=== PATIENT | female | born 1970 | race Caucasian/White ===

== ENCOUNTER 2018-04-26 11:44 | Inpatient (IN) | payer BC, OTHER ==
[2018-04-26] MEDS ORDERED: NS 0.9% 1000 ML** 1,000 ML IV ONE ×3 (12:04→12:07)
[2018-04-26] MEDS ORDERED: Metoclopramide IV* 5 MG/ML 2 ML VIAL IV ONE (12:04)
--- NOTE | 2018-04-26 12:04 | ED ---
GI/ HPI - HPI Summary HPI Summary: Patient is a 47 y/o F presenting to ED via EMS with complaints of LLQ abdominal pain, N/V, chronic chest pain, weight loss. She states that last night, she had a few beers and dinner, afterwards patient began to experience N/V and abdominal pain. Sx progressively worsened. She notes that she has had Hx of abdominal pain and N/V almost daily for the past year, states that she has been to see multiple doctors but etiology of Sx is unknown. PMHx of Crohn's, ulcerative colitis, diverticulitis, CHF is denied. Hx htn, depression, ETOH, chronic abd. pain with vomiting. EMS reports that patient was picked up at a hotel, gross amount of empty beer cans on floor and table noted. Patient states that present abdominal pain is sharper than her typical abdominal pain. Chest pain is also noted but the patient describes this as chronic and daily. She denies recreational drug usage. In room, pulse ranges from 47-55, EMS reported BP 80s over palp, o2 sat is 100 on RA. Patient also notes recent weight loss, she denies past issues with her potassium, states she feels dehydrated. She also notes feeling slightly light-headed and dizzy. Unsure of LNMP, patient is on control. In room, nurse reports manual BP of 80/48. Home medications and allergies are reviewed. - History of Current Complaint Stated Complaint: ABD PAIN Hx Obtained From: Patient, EMS Onset/Duration: Started Days Ago - last night, Still Present, Worse Since Timing: Constant, Lasting Days - last night Current Severity: Severe Location of Pain: LLQ Pain Characteristics: Sharp Associated Signs and Symptoms: Positive: Dizziness, Nausea, Vomiting, Lightheadedness, Abdominal Pain, Chest Pain - CHRONIC, Other: - recent weight loss, dehydration Aggravating Factor(s): Nothing Alleviating Factor(s): Nothing - Allergy/Home Medications Allergies/Adverse Reactions: Allergies Allergy/AdvReac Type Severity Reaction Status Date / Time No Known Allergies Allergy Verified 11/16/15 15:09 Home Medications: Home Medications Desogestrel-Ethinyl Estradiol [Enskyce 28 Tablet] 1 tab PO DAILY 04/26/18 [ History Confirmed 04/26/18] LORazepam TAB(*) [Ativan 1 MG TAB (*)] 2 mg PO DAILY PRN 04/26/18 [History Confirmed 04/26/18] Lisinopril TAB* [Prinivil TAB*] 10 mg PO DAILY 04/26/18 [History Confirmed 04/26] PMH/Surg Hx/FS Hx/Imm Hx Endocrine/Hematology History: Denies: Hx Diabetes Cardiovascular History: Reports: Hx Hypertension Denies: Hx Congestive Heart Failure, Hx Pacemaker/ICD GI History: Reports: Other GI Disorders - NO PMHx of ulcerative colitis Denies: Hx Crohn's Disease History: Denies: Hx Renal Disease Sensory History: Reports: Hx Contacts or Glasses Denies: Hx Hearing Aid Opthamlomology History: Reports: Hx Contacts or Glasses Psychiatric History: Denies: Hx Panic Disorder - Surgical History Surgery Procedure, Year, and Place: TUBAL LIGATION. DISCECTOMY L4-S1 ( W/ METAL CAGE)-[facility] - Family History Known Family History: Positive: Hypertension - Social History Alcohol Use: Rare Substance Use Type: Reports: None Smoking Status (MU): Never Smoked Tobacco Review of Systems Constitutional: Other - POSITIVE - RECENT WEIGHT LOSS, DEHYDRATION Positive: Chest Pain - CHRONIC Positive: Abdominal Pain, Vomiting, Nausea Neurological: Other - POSITIVE - DIZZINESS, LIGHT-HEADEDNESS All Other Systems Reviewed And Are Negative: Yes Physical Exam - Summary Physical Exam Summary: GENERAL: Patient is a well-developed and nourished female who is lying in the stretcher. Patient is not in any acute respiratory distress. She is somnolent but progressively perking up during evaluation. HEAD AND FACE: Normocephalic EYES: PERRLA, EOMI x 2. EARS: Hearing grossly intact. MOUTH: Oropharynx within normal limits. Dry and chapped oral mucosa. NECK: Supple, trachea is midline, no adenopathy, no JVD, no carotid bruit. CHEST: Symmetric, no tenderness at palpation LUNGS: Clear to auscultation bilaterally. No wheezing or crackles. CVS: Regular rate and rhythm, S1 and S2 present, no murmurs or gallops appreciated. ABDOMEN: Soft, diffuse tenderness, more so at LLQ. Bowel sounds are normal. No abdominal abnormal pulsations. EXTREMITIES: Full ROM in all major joints, no edema, no cyanosis or clubbing. NEURO: Alert and oriented x 3. No acute neurological deficits. Speech is normal and follows commands. Triage Information Reviewed: Yes Vital Signs On Initial Exam: Initial Vitals Resp 24 04/26/18 11:50 Vital Signs Reviewed: Yes Diagnostics - Laboratory Result Diagrams: 04/26/18 12:10 04/26/18 18:09 Lab Statement: Any lab studies that have been ordered have been reviewed, and results considered in the medical decision making process. - Radiology cxr Radiology Interpretation Completed By: Radiologist Summary of Radiographic Findings: CXR IMPRESSION: NO EVIDENCE FOR ACUTE DISEASE. THIS REPORT WAS REVIEWED BY ED PHYSICIAN. - CT ABD/PEL CT CT Interpretation Completed By: Radiologist Summary of CT Findings: CT ABD/PEL IMPRESSION: 1. THERE IS DIFFUSE PATTERN OF MUCOSAL THICKENING AND ENHANCEMENT OF THE SMALL BOWEL. THE. DIFFERENTIAL INCLUDES INFECTIOUS OR NONINFECTIOUS/INFLAMMATORY ENTERITIS, INCLUDING IN THE. SETTING OF INFLAMMATORY BOWEL DISEASE. THERE IS NO OBSTRUCTION. 2. THERE IS A SMALL AMOUNT OF PELVIC ASCITES. 3. FATTY INFILTRATION OF THE LIVER. THIS REPORT WAS REVIEWED BY ED PHYSICIAN. - EKG 1151 Cardiac Rate: Bradycardia - rate of 49 BPM EKG Rhythm: Sinus Bradycardia Summary of EKG Findings: EKG showed sinus bradycardia with rate of 49 BPM, prolonged QT. Re-Evaluation - Re-Evaluation First Eval Re-Evaluation Time: 14:10 Change: Improved Comment: Patient reports improvement in Sx, BP at 106/50. GIGU Course/Dx - Course Course Of Treatment: Patient is a 47 y/o F presenting to ED via EMS with complaints of abdominal pain, N/V, chronic chest pain, weight loss. She states that last night, she had a few beers and dinner, afterwards patient began to experience N/V and abdominal pain. Sx progressively worsened. She notes that she has had Hx of abdominal pain, N/V for the past year, states that she has been to see multiple doctors but cause of Sx is unknown. PMHx of Crohn's, ulcerative colitis is denied. Patient notes that present abdominal pain is sharper than her typical abdominal pain. Chest pain is also noted but the patient describes this as chronic. She denies recreational drug usage. In room, ranges from 47-55, EMS reported BP 80s over palp, o2 sat is 100 on RA. Patient also notes recent weight loss, she denies past issues with her potassium, states she feels dehydrated. She also notes feeling slightly light-headed and dizzy. Unsure of LNMP, patient is on control. In room, nurse reports manual BP of 80/48. On physical exam, patient is somnolent but progressively perking up, oral mucosa are dry and chapped, diffuse abdominal tenderness but more so at LLQ. EKG showed sinus bradycardia with rate of 49 BPM, prolonged QT. During ED course, patient received fluids, flagyl 500 mg in 100 mls @ 100 mls/hr IVPB ONCE, relgan 10 mg IV, Slow Mag Ec 64 mg PO ONCE, ceftriaxone sodium 1 gm in sodium chloride, 50 mls @ 100 mls/hr IVPB ED ONCE. Labs showed WBC 25.6, absolute neuts 23.1, absolute monos 1.1, APTT 22.2, carbon dioxide 16 , anion gap 12, creatinine 1.58, glucose 136, lactic acid 2.4, calcium 7.6, magnesium 1.5, trop 0, CRP 5.05, total protein 5.9, BNP 49, beta HCG < 0.6. Tox showed salicylates < 2.5, acetaminophen < 15, serum alcohol < 10. UA showed protein 1+, blood 1+, leukoycte esterase 3+, WBC 1+, RBC 1+, present squamous epith cells, present hyaline casts. Patient reports improvement in Sx, BP at 106/50. CT ABD/PEL IMPRESSION: 1. THERE IS DIFFUSE PATTERN OF MUCOSAL THICKENING AND ENHANCEMENT OF THE SMALL BOWEL. THE. DIFFERENTIAL INCLUDES INFECTIOUS OR NONINFECTIOUS/INFLAMMATORY ENTERITIS, INCLUDING IN THE. SETTING OF INFLAMMATORY BOWEL DISEASE. THERE IS NO OBSTRUCTION. 2. THERE IS A SMALL AMOUNT OF PELVIC ASCITES. 3. FATTY INFILTRATION OF THE LIVER. CXR IMPRESSION : NO EVIDENCE FOR ACUTE DISEASE. Patient reports improvement in Sx, BP at 106/ 50. Patient's case was discussed with Dr. Lara, Dr. Lara accepts the patient for admission. - Diagnoses Provider Diagnoses: Hypotension, Abdominal pain - Physician Notifications Discussed Care Of Patient With: Daisy Lara Time Discussed With Above Provider: 14:12 Instructed by Provider To: Other - Patient's case was discussed with Dr. Lara, Dr. Lara accepts the patient for admission. - Critical Care Time Critical Care Time: 30-74 min - 45 MINUTES OF CCT Discharge - Sign-Out/Discharge Documenting (check all that apply): Patient Departure - ADMIT - Discharge Plan Condition: Good Disposition: ADMITTED TO [facility] Referrals: Yamileth Cheng MD [Primary Care Provider] - - Billing Disposition and Condition Condition: GOOD Disposition: Admitted to [facility] - Attestation Statements Document Initiated by Louis: Yes Documenting Scribe: TRAVIS SYKES Provider For Whom Louis is Documenting (Include Credential): SARAH RAHMAN MD Scribe Attestation: ITRAVIS , scribed for SARAH RAHMAN MD on 04/26/18 at 2124. Scribe Documentation Reviewed: Yes Provider Attestation: The documentation as recorded by the TRAVIS allen accurately reflects the service I personally performed and the decisions made by me, SARAH RAHMAN MD Status of Scribe Document: Viewed
[2018-04-26 12:20] LABS: Hematocrit 45 % (35-47); Hemoglobin 14.5 g/dl (12.0-16.0); Mean Corpuscular HGB Conc 33 g/dl (31-36); Mean Corpuscular Hemoglobin 29 pg (27-31); Mean Corpuscular Volume 89 fL (80-97); Mean Platelet Volume 8.6 fL (7.4-10.4); Platelet Count 394 10^3/ul (150-450); Red Blood Count 4.98 10^6/ul (4.00-5.40); Red Cell Distribution Width 14 % (10.5-15); White Blood Count 25.6 10^3/ul (3.5-10.8)
[2018-04-26 12:30] LABS: Activated Partial Thrombo Time 22.2 seconds (26.0-36.3); INR 0.99 (0.77-1.02)
--- OUTSIDE RECORDS SUMMARY | 2018-04-26 12:38 | XMS REPORT | Continuity of Care Document ---
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 Screening Mammogram Malig Nikolai Other 787.02 Nausea Alone v25.49 Contraceptive Other Method Surveillance V25.9 Contraceptive Management Unspec Office Visit 03/29/2014 9:30a [facility] Oralia Ortiz, 488.82 Influenza Due To Afnp-C Identified Influenza A Virus Resp Manfestat 401.9 Hypertension Unspec Plan of Treatment 04/23/2018 - Sona Baker, NPN93.9 Abnormal uterine and vaginal bleeding, [id number] Essential (primary) hypertensionComments:The patient will continue to monitor blood pressure and let me know the blood pressure results if there are readings persistently above 140/80. Goal blood pressure is less than 140/80. Recommend low salt/cardiac diet and routine exercise.Z30.8 Encounter for other contraceptive [id number] NauseaComments:patient instructed to call back if condition fails to improve or worsens.R63.4 Abnormal weight lossComments:I'm concerned - will get to OBGYN, patient instructed to call back if condition fails to improve or worsens.AllComments:~B_~U_Medication Management~b_~u_ Patient Understands medications he 's taking? Yes No Are there Barriers to Adherence? Yes No Has the patient been asked about herbal supplements and therapies, and OTC meds? Yes No ~B_~U_Care Plan~b_~u_1. Patient has been queried about patient's goals/preferences and functional/lifestyle goals at relevant visits. If relevant, describe: na2. Treatment goals as explained to the patient: above3. Are there barriers to meeting treatment goals? Yes No If Yes, please describe:4. Self- Management goals as described to the patient:Yes NoAs always, we strongly encourage a healthy diet and making physical activity a part of your every day life. If you have questions about how or where to start, please contact the office.
[2018-04-26 12:49] LABS: ALT 16 U/L (7-52); AST 14 U/L (13-39); Albumin 3.3 g/dL (3.2-5.2); Albumin/Globulin Ratio 1.3 (1-3); Alkaline Phosphatase 54 U/L (34-104); Anion Gap 12 mmol/L (2-11); BUN/Creatinine Ratio 8.2 (8-20); Blood Urea Nitrogen 13 mg/dL (6-24); C Reactive Protein 5.05 mg/L (<8.01); CO2 Carbon Dioxide 16 mmol/L (22-32); Calcium 7.6 mg/dL (8.6-10.3); Chloride 110 mmol/L (101-111); Creatine Kinase 50 U/L (10-223); EGFR African American 42.8 (>60); EGFR Non-African American 35.4 (>60); Globulin 2.6 g/dL (2-4); Glucose 136 mg/dL (70-100); Magnesium 1.5 mg/dL (1.9-2.7); Potassium 3.9 mmol/L (3.5-5.0); Sodium 138 mmol/L (135-145); Total Protein 5.9 g/dL (6.4-8.9)
[2018-04-26 12:51] LABS: HCG Pregnancy < 0.60 mIU/mL
[2018-04-26 13:05] LABS: ABS Basophils 0.1 10^3/ul (0-0.2); ABS Eosinophils 0 10^3/ul (0-0.6); ABS Lymphocytes 1.4 10^3/ul (1.0-4.8); ABS Monocytes 1.1 10^3/ul (0-0.8); ABS Neutrophils 23.1 10^3/ul (1.5-7.7); ABS Nucleated RBC 0 10^3/ul; Eosinophil % 0 %; Lymphocyte % 5.4 %; Nucleated Red Blood Cells % 0.1
[2018-04-26] MEDS ORDERED: cefTRIAXone(*) 1 GM in NS 0.9% 50 ML* 50 ML IVPB ONE (13:13)
[2018-04-26] MEDS ORDERED: Magnesium Chloride EC TAB* 64 MG PO ONE (13:16)
[2018-04-26] MEDS ORDERED: metroNIDAZOLE IV 500 MG/100ML* 500 MG/100 ML BAG IVPB ONE (13:16)
[2018-04-26 13:32] LABS: Acetaminophen < 15 mcg/mL; Salicylate < 2.50 mg/dL (<30)
[2018-04-26] MEDS ORDERED: Iodixanol* (CONTRAST) 320 MG/ML 100 ML SDV IV ONE (13:38)
[2018-04-26 14:08] LABS: Urine Appearance Cloudy; Urine Bacteria Absent (Absent); Urine Bilirubin Negative (Negative); Urine Blood 1+ (Negative); Urine Color Yellow; Urine Glucose Negative (Negative); Urine Ketones Negative (Negative); Urine Nitrite Negative (Negative); Urine Protein 1+(30 mg/dL) (Negative); Urine Red Blood Cell 1+(3-5/hpf) (Absent); Urine Specific Gravity 1.013 (1.010-1.030); Urine Squamous Epithelial Cell Present (Absent); Urine Urobilinogen Negative (Negative); Urine White Blood Cell 1+(6-10/hpf) (Absent)
[2018-04-26 15:33] LABS: Influenza A Molecular NEGATIVE (Negative); Influenza B Molecular NEGATIVE (Negative)
[2018-04-26 15:45] LABS: Barbiturates Urine Screen None Detected (None Detect); Benzodiazepine Urine Screen None Detected (None Detect); Urine Cannabinoids Screen None Detected (None Detect)
[2018-04-26] MEDS ORDERED: NS 0.9% 1000 ML** 1,000 ML IV SCH (15:45)
[2018-04-26] MEDS ORDERED: Acetaminophen TAB* 325 MG PO PRN (15:59)
[2018-04-26] MEDS ORDERED: LORazepam TAB(*) 0.5 MG PO PRN (16:00)
[2018-04-26] MEDS ORDERED: Ondansetron INJ* 2 MG/ML VIAL IV PRN (16:00)
[2018-04-26 18:32] LABS: Albumin 3.4 g/dL (3.2-5.2); Albumin/Globulin Ratio 1.4 (1-3); BUN/Creatinine Ratio 12.9 (8-20); Calcium 8.2 mg/dL (8.6-10.3); EGFR African American 61.1 (>60); EGFR Non-African American 50.5 (>60); Globulin 2.4 g/dL (2-4); Potassium 4.2 mmol/L (3.5-5.0); Total Bilirubin 0.4 mg/dL (0.2-1.0); Total Protein 5.8 g/dL (6.4-8.9)
--- NOTE | 2018-04-26 18:48 | HP ---
HISTORY AND PHYSICAL DATE OF ADMISSION: 04/26/18 PRIMARY CARE PROVIDER: Dr. Yamileth Cheng. CHIEF COMPLAINT: Abdominal pain and dizziness. HISTORY OF PRESENT ILLNESS: This is a 47-year-old female with a past medical history of chronic abdominal pain with extensive workup done at [facility], gastroparesis, fibroids, HTN, anxiety and PTSD, who presents to the emergency room with 2 weeks of generally not feeling well, feeling week and having what she though was fibroid pain. She generally has this kind of pain with her fibroids and she had some breakthrough spotting and did not think much of it and continued to work as normal. About 1 week ago, she started to feel like she was coming down with maybe a virus and generally felt malaise, then took a few days off work and then one day prior to admission, she said she got very exhausted. She and her boyfriend were planning on going on a date and stayed at a hotel. They went out to dinner and had gyros and then she immediately had nausea and vomiting and diarrhea. She also said she drank about 2 beers at that time with dinner, but otherwise no other substance intake. She said her nausea, vomiting and diarrhea persisted overnight to the point where she became dizzy and was unable to stand, culminated with 1 episode of bloody emesis and bloody diarrhea, at this point requested her family to call ambulance. Of note, this patient says that she often has nausea, vomiting and diarrhea after she eats and as per past medical history she has had an extensive workup with numerous GI doctors and ultimately has been unrevealing. She does note an unintentional weight loss of 50 pounds since October and this has all been in the setting of her chronic abdominal pain and issues. Although she said that this most recent presentation is the most severe presentation of all of her history. The patient also notes that her stomach problems began about 10 years ago. EMERGENCY ROOM COURSE: In the emergency room, the patient presented hypotensive with blood pressure 78/54 and bradycardic, sinus rate of 52, was satting normally on room air and had a respiration rate of 13. She had labs that were notable for a white blood cell count of 25. She had a BMP that was notable for a sodium of 138, potassium of 3.9, a carbon dioxide of 16, and anion gap of 12, creatinine of 1.58. Lactic acid was drawn that was 2.4. Her calcium was slightly low at 7.6. She had unremarkable liver function testing and a negative test. She had a UA that was done that showed significant leuk esterase, squamous cells and white blood cells consistent with UTI. She had an influenza test done that was negative. She had a toxicology screen that was negative for all. Serum alcohol level was less than 10. She had imaging done in the emergency room that was a CT abdomen and pelvis that showed diffuse mucosal thickening of the small bowel consistent with enteritis and also some nonspecific pelvic ascites. She had a chest x-ray that showed no acute disease. She had an EKG that was done that showed sinus bradycardia with no evidence of ischemia with a QTc greater than 500. In the emergency room, she received 4 L of normal saline, metronidazole, and ceftriaxone. PAST MEDICAL HISTORY: 1. Chronic abdominal pain. 2. Anxiety. 3. PTSD. 4. Hypertension. 5. Fibroids. 6. Unintentional weight loss of 50 pounds since October 2017. FAMILY HISTORY: Noncontributory. SOCIAL HISTORY: She lives at home with 2 sons and an adult daughter who is currently at college. For her job, she is a traveling nurse. She is a social alcohol drinker and denies any history of abuse. She has no history of substance abuse and she is a lifetime nonsmoker. HOME MEDICATIONS: 1.Lisinopril 10 mg p.o. daily. ALLERGIES: She has no known drug allergies. REVIEW OF SYSTEMS: The patient denied headaches, vision changes, difficulty swallowing. Denies chest pain, shortness of breath, musculoskeletal pain, skin changes, mental status changes, neurological changes. Her review of systems is positive for nausea, vomiting, diarrhea, abdominal pain and on further questioning is positive for bloody vomiting and diarrhea, one episode during the night prior to admission. She noted that this was bright red blood streaking in her vomit and bright red blood per rectum streaking in her stool. PHYSICAL EXAMINATION GENERAL: She is alert, pleasant woman, in no acute distress, lying in bed. VITAL SIGNS: Blood pressure is 120/75, heart rate 51, respiration rate 13, satting 100% on room air. Her temperature is 97.4. HEENT: Eyes: Her conjunctivae are pink. Her pupils are equal and reactive. Her ENT exam, she has moist mucous membranes with good dentition. LYMPHATIC: She has no cervical or supraclavicular lymphadenopathy. RESPIRATORY: She is clear to auscultation bilaterally with no accessory muscles. CARDIAC: She has no murmurs, rubs, or gallops and S1, S2 with mildly bradycardic rhythm in the 50s. ABDOMEN: Her belly is soft, nondistended with bowel sounds in all 4 quadrants. She is tender to palpation in left lower quadrant. She has no evidence of hepatosplenomegaly and no stigmata of chronic liver disease. MUSCULOSKELETAL: She has full range of motion with no clubbing or cyanosis. NEURO: Her cranial nerves II through XII are intact. She has no focal deficits. PSYCH: She is oriented x3 with no evidence of anxiety or depression. SKIN: She has no rashes and no abnormalities. DIAGNOSTIC STUDIES/LAB DATA: Her BMP is as we discussed: Sodium 138, potassium 3.9, chloride 110, carbon dioxide 16, anion gap of 12, BUN 13, creatinine 1.58, glucose 136. Her calcium is 7.6. Her magnesium is 1.5. Her phosphorus was not drawn. Her liver values are as following: She has AST of 14 , ALT of 16, alk phos of 54, total bilirubin 0.4. EKG was notable for sinus bradycardia with a QTc prolongation of greater than 500. Chest x-ray was with no acute disease. CT abdomen and pelvis was done that showed diffuse mucosal thickening of the small bowel and scant pelvic ascites. EKGs and all films were reviewed personally. ASSESSMENT AND PLAN: This is a 47-year-old female with a past medical history of hypertension, chronic abdominal issues, anxiety, who presented with 2 weeks of subacute malaise and 1 day of nausea, vomiting and diarrhea with 1 episode of bloody emesis and diarrhea along with dizziness. She presented in the emergency room septic with evidence of urinary tract infection and small bowel enteritis. She also was found to have acute kidney injury and anion gap metabolic acidosis. 1. Sepsis: This is secondary to urinary tract infection and intraabdominal source. -We will continue normal saline at 125 cc per hour. -We will repeat the BMP and lactic acid. -Continue antibiotics, ceftriaxone and metronidazole. If declines, consider broadening to Zosyn. Follow up on panculture. 2. Urinary tract infection: Continue ceftriaxone and metronidazole. Await culture data. 3. Enteritis: She has diffuse mucosal thickening in her small bowel, unclear if this is infectious or a noninfectious cause of enteritis. -We will send stool for culture including Clostridium difficile. -I have also placed a consult to Dr. Erik Dupont for GI followup. She remains on a clear liquid diet. 4. Anion gap metabolic acidosis, most likely secondary to starvation ketosis: We will repeat her BMP after fluid resuscitation and adjust fluids accordingly. 5. Acute kidney injury: Her creatinine is elevated to 1.5 with a baseline that is usually normal, most likely secondary to prerenal and we will continue to follow after fluid resuscitation. 6. Unintentional weight loss: This is a subacute issue. She has lost 50 pounds unintentionally since October 2017, unclear if this is contributing to her current presentation. We will discuss with GI whether formal oncology workup is needed for cause of unintentional weight loss. 7. Anxiety: I will put her on 0.5 mg p.o. of Ativan for mild anxiety. 8. DVT prophylaxis: She is of moderate risk and she is on subcu heparin. 9. FEN: She remains on clear liquid diet with a GI consult pending and can advance as tolerated. 10. She is a full code status. 11. Her disposition currently is inpatient specialists. After this assessment and plan, specialists have been contacted include GI, consult was placed in the emergency room. They plan to see her on hospital day 2. PCP will be contacted during this hospitalization. Case was discussed with the patient and her family members. TIME SPENT: Sixty minutes was spent in the history and physical of this patient with over half of that spent at the bedside of the patient and residential counselor. [id number]/[facility] #: [id number] MAYE
[2018-04-26] MEDS ORDERED: Metoclopramide IV* 5 MG/ML 2 ML VIAL IV PRN (19:46)
[2018-04-26] MEDS: metroNIDAZOLE IV 500 MG/100ML* 500 MG/100 ML BAG IVPB SCH (22:24)
[2018-04-26] MEDS: Heparin VIAL(*) 5000 UNITS/ML VIAL (FIVE THOUSAND) SUBCUT SCH (22:27)
[2018-04-27 05:14] LABS: ABS Basophils 0.1 10^3/ul (0-0.2); ABS Eosinophils 0 10^3/ul (0-0.6); ABS Lymphocytes 2.3 10^3/ul (1.0-4.8); ABS Monocytes 1.1 10^3/ul (0-0.8); ABS Neutrophils 13.3 10^3/ul (1.5-7.7); ABS Nucleated RBC 0 10^3/ul; Eosinophil % 0.1 %; Hematocrit 38 % (35-47); Hemoglobin 12.6 g/dl (12.0-16.0); Lymphocyte % 13.8 %; Mean Corpuscular HGB Conc 33 g/dl (31-36); Mean Corpuscular Hemoglobin 29 pg (27-31); Mean Corpuscular Volume 87 fL (80-97); Mean Platelet Volume 8.8 fL (7.4-10.4); Nucleated Red Blood Cells % 0; Platelet Count 316 10^3/ul (150-450); Red Cell Distribution Width 14 % (10.5-15); White Blood Count 16.8 10^3/ul (3.5-10.8)
[2018-04-27] MEDS: Heparin VIAL(*) 5000 UNITS/ML VIAL (FIVE THOUSAND) SUBCUT SCH ×3 (05:29→21:43)
[2018-04-27 05:34] LABS: Calcium 8.4 mg/dL (8.6-10.3); EGFR African American 86.3 (>60); EGFR Non-African American 71.4 (>60); Potassium 3.8 mmol/L (3.5-5.0)
--- NOTE | 2018-04-27 09:22 | PN ---
Subjective Date of Service: 04/27/18 Interval History: HD#2 on 04/27/18 47 yo F admitted with sepsis likely from enteritis and possible UTI. Also with subacute chronic abdominal pain with 1 episode of blood N/V and subacute weight loss unintentional Overnight no acute events, BP low of 92/49, improved overnight, T Max 99.2. Labs markedly improved this morning. Voiding normally. Seen this morning no acute complaints, has not had diarrhea or any BM here. Is not tolerating much of a diet, but she says this is her normal, encourage for her to make a meaningful relationship with GI Objective Active Medications: Acetaminophen (Tylenol Tab*) 650 mg PO Q6H PRN PRN Reason: FEVER/PAIN Heparin Sodium (Porcine) (Heparin Vial(*)) 5,000 units SUBCUT Q8HR SIMONE Last Admin: 04/27/18 05:29 Dose: 5,000 units Ceftriaxone Sodium 1 gm/ (Sodium Chloride) 50 mls @ 200 mls/hr IVPB Q24H SIMONE Metronidazole/Sodium Chloride (Flagyl 500 Mg Ivpb*) 500 mg in 100 mls @ 100 mls /hr IVPB Q12H [facility] Last Admin: 04/26/18 22:24 Dose: 100 mls/hr Lorazepam (Ativan Tab(*)) 0.5 mg PO Q6H PRN PRN Reason: ANXIETY Metoclopramide HCl (Reglan Iv*) 5 mg IV Q6H PRN PRN Reason: NAUSEA/VOMITING Vital Signs - 8 hr 04/27/18 04/27/18 04/27/18 02:41 07:48 08:41 Temperature 98.0 F 99.2 F Pulse Rate 62 71 Respiratory 20 18 18 Rate Blood Pressure 108/57 110/60 (mmHg) O2 Sat by Pulse 99 99 Oximetry Oxygen Devices in Use Now: None Appearance: Well woman in NAD Eyes: No Scleral Icterus Ears/Nose/Mouth/Throat: Mucous Membranes Moist Respiratory: Symmetrical Chest Expansion and Respiratory Effort, Clear to Auscultation Cardiovascular: NL Sounds; No Murmurs; No JVD, RRR Abdominal: - - TTP in LLQ no distention Lymphatic: No Cervical Adenopathy Extremities: No Edema Neurological: Alert and Oriented x 3 Result Diagrams: 04/27/18 05:02 04/27/18 05:02 Microbiology and Other Data: Microbiology 04/26/18 15:10 Influenza Types A,B Antigen - Final Nasal Specimen received for Influenza A/B Molecular testing Assess/Plan/Problems-Billing Assessment: 47 yo F with PMH HTN, chronic abdominal pain with extensive past prior workup and subacute unintentional weight loss x 6 months who presented with 1 day of nausea/vomiting and diarrhea, with 1 episode of blood in emesis and stool, found to be septic with enteritis of small bowel and possible UTI and NOELLE. - Patient Problems (1) Sepsis Current Visit: Yes Status: Acute Comment: 2/2 to urinary and intrabdominal source, leukocytosis, hypotension, elevated lactic acid -s/p 5L total of normal saline in 24 hours, pressures stable x 12 hours -CTX and Metronidazole, s/p bernstein culture -Lactic acid repeat normalized after fluid resuscitation. (2) Enteritis Current Visit: Yes Status: Acute Code(s): K52.9 - NONINFECTIVE GASTROENTERITIS AND COLITIS, UNSPECIFIED SNOMED Code(s): 46496446 Comment: Seen on CT, pt has subacute past of chronic abdominal pain with associated nausea and vomiting -Reports prior past EGD and colo neg with bx, reports normal gastric emptying study, last GI in [place] -Stool cultures ordered -Clear liquid diet -GI consulted for episode of bloody emesis and dairrhea, none in hospital (3) Urinary tract infection Current Visit: Yes Status: Acute Comment: -Seen on UA in ED -UCx pending -Emperic coverage on CTX, Metronidazole for intrabdominal coverage (4) NOELLE (acute kidney injury) Current Visit: Yes Status: Acute Code(s): N17.9 - ACUTE KIDNEY FAILURE, UNSPECIFIED SNOMED Code(s): 15757662 Comment: Prerenal, improved with fluids (5) Increased anion gap metabolic acidosis Current Visit: Yes Status: Acute Code(s): E87.2 - ACIDOSIS SNOMED Code(s) : 29408012 Comment: Improved with fluids 2/2 to starvation likely, persitent NAGMA now 2 /2 to NaCL (6) Unintended weight loss Current Visit: Yes Status: Acute Code(s): R63.4 - ABNORMAL WEIGHT LOSS SNOMED Code(s): 501445210 Comment: Subacute, reports losing 50lbs in 6 months 2/2 to her chronic abdominal issues -Ensure thourough outpt GI followup (7) Anxiety Current Visit: Yes Status: Acute Code(s): F41.9 - ANXIETY DISORDER, UNSPECIFIED SNOMED Code(s): 01769606 Comment: PRN Ativan (8) DVT prophylaxis Current Visit: Yes Status: Acute Code(s): UPJ9635 - SNOMED Code(s): 739891462 Comment: NIYA (9) Full code status Current Visit: Yes Status: Acute Code(s): Z78.9 - OTHER SPECIFIED HEALTH STATUS SNOMED Code(s): 848411449 Status and Disposition: Inpatient
[2018-04-27] MEDS: metroNIDAZOLE IV 500 MG/100ML* 500 MG/100 ML BAG IVPB SCH ×2 (09:58→22:11)
[2018-04-27] MEDS ORDERED: cefTRIAXone(*) 1 GM in NS 0.9% 50 ML* 50 ML IVPB SCH (16:00)
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
[2018-04-28] MEDS: Heparin VIAL(*) 5000 UNITS/ML VIAL (FIVE THOUSAND) SUBCUT SCH (05:35)
[2018-04-28 07:04] LABS: ABS Basophils 0.1 10^3/ul (0-0.2); ABS Eosinophils 0.1 10^3/ul (0-0.6); ABS Lymphocytes 1.9 10^3/ul (1.0-4.8); ABS Monocytes 0.7 10^3/ul (0-0.8); ABS Neutrophils 7.3 10^3/ul (1.5-7.7); ABS Nucleated RBC 0 10^3/ul; Eosinophil % 0.7 %; Hematocrit 36 % (35-47); Hemoglobin 12.2 g/dl (12.0-16.0); Mean Corpuscular HGB Conc 34 g/dl (31-36); Mean Corpuscular Hemoglobin 29 pg (27-31); Mean Corpuscular Volume 87 fL (80-97); Mean Platelet Volume 8.9 fL (7.4-10.4); Nucleated Red Blood Cells % 0.1; Platelet Count 231 10^3/ul (150-450); Red Blood Count 4.16 10^6/ul (4.00-5.40); Red Cell Distribution Width 14 % (10.5-15); White Blood Count 9.9 10^3/ul (3.5-10.8)
[2018-04-28 07:28] LABS: BUN/Creatinine Ratio 10.9 (8-20); Calcium 8.4 mg/dL (8.6-10.3); EGFR African American 121.4 (>60); EGFR Non-African American 100.3 (>60); Potassium 3.5 mmol/L (3.5-5.0)
--- NOTE | 2018-04-28 07:28 | PN ---
Subjective Date of Service: 04/28/18 Interval History: HD # 3 on 04/28/18 47 yo F with PMH functional GI d/o presented septic 04/10 to intrabominal source No acute events overnight VSS, labs normalized This morning seen resting in bed, she is feeling back to her baseline with no complaints. Would like to return to home Objective Active Medications: Acetaminophen (Tylenol Tab*) 650 mg PO Q6H PRN PRN Reason: FEVER/PAIN Heparin Sodium (Porcine) (Heparin Vial(*)) 5,000 units SUBCUT Q8HR [facility] Last Admin: 04/28/18 05:35 Dose: 5,000 units Ceftriaxone Sodium 1 gm/ (Sodium Chloride) 50 mls @ 200 mls/hr IVPB Q24H [facility] Last Admin: 04/27/18 15:40 Dose: 200 mls/hr Metronidazole/Sodium Chloride (Flagyl 500 Mg Ivpb*) 500 mg in 100 mls @ 100 mls /hr IVPB Q12H [facility] Last Admin: 04/27/18 22:11 Dose: 100 mls/hr Lorazepam (Ativan Tab(*)) 0.5 mg PO Q6H PRN PRN Reason: ANXIETY Metoclopramide HCl (Reglan Iv*) 5 mg IV Q6H PRN PRN Reason: NAUSEA/VOMITING Last Admin: 04/27/18 21:43 Dose: 5 mg Vital Signs - 8 hr 04/28/18 04/28/18 00:20 03:52 Temperature 97.8 F 97.3 F Pulse Rate 62 63 Respiratory 16 16 Rate Blood Pressure 119/78 145/73 (mmHg) O2 Sat by Pulse 99 99 Oximetry Oxygen Devices in Use Now: None Appearance: Well woman in NAD Ears/Nose/Mouth/Throat: Mucous Membranes Moist Respiratory: Symmetrical Chest Expansion and Respiratory Effort, Clear to Auscultation Cardiovascular: NL Sounds; No Murmurs; No JVD, RRR Abdominal: NL Sounds; No Tenderness; No Distention, No Hepatosplenomegaly, - - MIld TTP in LLQ Lymphatic: No Cervical Adenopathy Extremities: No Edema Skin: No Rash or Ulcers Neurological: Alert and Oriented x 3 - Nutrition: Malnutrition Diagnosis/Plan Malnutrition Assessment by Registered Dietitian: Malnutrition Assessment Clinical Characteristics Chronic,Severe Malnutrition Assessment: - 26% wt loss x 6 months Criteria - < 75% estimated energy expenditure > 1 month Malnutrition Assessment: Will follow ability to advance diet and offer an Interventions oral nutritional supplement as indicated. Malnutrition Assessment: Goals 1. As able, advance diet. Ultimately, recommend low fat and low fiber. 2. Ultimately, adequate nutrition to support wt repletion and hydration w/o undesired wt loss. Result Diagrams: 04/28/18 06:50 04/28/18 06:50 Microbiology and Other Data: Microbiology 04/26/18 15:10 Influenza Types A,B Antigen - Final Nasal Specimen received for Influenza A/B Molecular testing Assess/Plan/Problems-Billing Assessment: 47 yo F with PMH HTN, chronic abdominal pain with extensive past prior workup and subacute unintentional weight loss x 6 months who presented with 1 day of nausea/vomiting and diarrhea, with 1 episode of blood in emesis and stool, found to be septic with enteritis of small bowel and possible UTI and NOELLE. - Patient Problems (1) Sepsis Current Visit: Yes Status: Resolved Comment: 2/2 to intrabdominal source, leukocytosis, hypotension, elevated lactic acid-all resolved -s/p 5L total of normal saline in 24 hours, pressures stable x 24 hours -CTX and Metronidazole, s/p bernstein culture, continue for total of 7 days -Lactic acid repeat normalized after fluid resuscitation. (2) Enteritis Current Visit: Yes Status: Acute Code(s): K52.9 - NONINFECTIVE GASTROENTERITIS AND COLITIS, UNSPECIFIED SNOMED Code(s): 00335632 Comment: Seen on CT, pt has subacute past of chronic abdominal pain with associated nausea and vomiting -Reports prior past EGD and colo neg with bx, reports normal gastric emptying study, last GI in [facility] -Stool cultures ordered-NGTD, she did follow with GI who recommended outpatient follow up -Clear liquid diet -GI consulted for episode of bloody emesis and dairrhea, none in hospital (3) Urinary tract infection Current Visit: Yes Status: Resolved Comment: -UCx ultimately negsative -Emperic coverage on CTX, Metronidazole for intrabdominal coverage (4) NOELLE (acute kidney injury) Current Visit: Yes Status: Resolved Code(s): N17.9 - ACUTE KIDNEY FAILURE, UNSPECIFIED SNOMED Code(s): 10314464 Comment: Prerenal, improved with fluids (5) Increased anion gap metabolic acidosis Current Visit: Yes Status: Acute Code(s): E87.2 - ACIDOSIS SNOMED Code(s) : 46521020 Comment: Improved with fluids 2/2 to starvation likely, persitent NAGMA now 2 /2 to NaCL (6) Unintended weight loss Current Visit: Yes Status: Acute Code(s): R63.4 - ABNORMAL WEIGHT LOSS SNOMED Code(s): 727155824 Comment: Subacute, reports losing 50lbs in 6 months 2/2 to her chronic abdominal issues -Ensure thourough outpt GI followup (7) Anxiety Current Visit: Yes Status: Acute Code(s): F41.9 - ANXIETY DISORDER, UNSPECIFIED SNOMED Code(s): 67941442 Comment: PRN Ativan (8) DVT prophylaxis Current Visit: Yes Status: Acute Code(s): PUO3267 - SNOMED Code(s): 402020903 Comment: [facility] (9) Full code status Current Visit: Yes Status: Acute Code(s): Z78.9 - OTHER SPECIFIED HEALTH STATUS SNOMED Code(s): 222561231 Status and Disposition: DC to home
[2018-04-28 08:43] VITALS: BP 147/83
--- NOTE | 2018-04-28 09:42 | DS ---
DISCHARGE SUMMARY: DATE OF ADMISSION: 04/26/18 DATE OF DISCHARGE: 04/28/18 CC: Dr. Yamileth Cheng PRIMARY DIAGNOSES: 1. Sepsis. 2. Enteritis. SECONDARY DIAGNOSES: 1. Functional gastrointestinal disorder with chronic abdominal pain. 2. Anxiety. 3. Posttraumatic stress disorder. 4. Hypertension. 5. Fibroid uterus. 6. Unintentional weight loss of 50 pounds since October 2017. MEDICATIONS ON DISCHARGE: As follows: 1. Ciprofloxacin 500 mg p.o. b.i.d. for x 4 days after discharge. 2. Enskyce 1 tablet p.o. daily. 3. Lisinopril 10 mg p.o. daily. 4. Lorazepam 2 mg p.o. daily p.r.n. for anxiety. 5. Metronidazole 500 mg p.o. t.i.d. x4 days after discharge. HISTORY OF PRESENT ILLNESS AND HOSPITAL COURSE: A 47-year-old female with past medical history as above, who presented to the emergency room on 04/26/18 after 2 days of nausea, vomiting, and diarrhea. Patient reports that she, prior to admission, had 2 weeks of generally not feeling well and some malaise, some lower abdominal cramping, and pain and then just prior to admission had dinner with her boyfriend and drank 2 beers then right after dinner started having multiple episodes of nausea, vomiting, and diarrhea culminating with 1 episode of bloody emesis and bright red blood per rectum. She decided to call the ambulance at that time and she felt very weak and exhausted. EMERGENCY ROOM COURSE: In the emergency room, the patient presented hypertensive with a blood pressure of 78/54 and bradycardic, sinus rate of 52, she was satting normally on room air, had a respiration rate of 13. At that time, she was AO x3, although tired. She did have labs that were notable for white blood cell count of 25. She had a BMP that was notable for a creatinine of 1.58 with a baseline that is normal, lactic acid drawn was elevated at 2.4, her calcium was slightly low at 7.6. She did have unremarkable liver function testings and a negative test. She had a UA that was done that was significant for leuk esterase, squamous cells, 3+ white blood cells. She did have influenza testing that was negative. She did have a tox screen that was negative and serum alcohol level was less than 10. Imaging that was done in the emergency room included a CT abdomen that showed diffuse mucosal thickening of the small bowel consistent with enteritis and some nonspecific pelvic ascites. She had a chest x-ray that showed no acute disease and she had an EKG that was done and showed sinus bradycardia with no evidence of ischemia. In the emergency room, she received 4 L of normal saline, metronidazole, and ceftriaxone. She was admitted to the medical service for further treatment and diagnosis. Her hospital course by problem is as follows: 1. Sepsis. Patient presented septic with evidence of hypertension, elevated white count, elevated respiratory rate, and elevated lactic acid, this is thought to be secondary to urinary tract infection or an intraabdominal source. Patient was pancultured and continued on ceftriaxone and metronidazole for presumed intraabdominal source for 3 days in the hospital. Within 24 hours her lactic acid had returned to normal. Her white blood cell count by hospital day 3 had returned to normal and her blood pressure normalized by hospital day 1. Panculture was completed that ultimately showed that urine culture had no growth to date. Stool cultures were completed that showed no pathology. Chest x-ray was done that showed no parenchymal source. Blood cultures were drawn that showed no growth by day of discharge; thus, the source of her sepsis was presumed to be intraabdominal and small bowel enteritis. GI was consulted in this case and the episode that she had of bright red blood per rectum as well as bloody emesis. GI felt that this was most likely secondary to Dimple-Daugherty tear and possible hemorrhoids. The patient's CBC with H and H stayed stable and GI and the patient elected on no further intervention, although she was scheduled for GI outpatient followup in the setting of longstanding functional abdominal disorder. 2. NOELLE. Patient was admitted with acute kidney injury with creatinine elevated to 1.5, with fluid resuscitation her creatinine returned to normal, most consistent with prerenal injury. 3. Enteritis. As above she had diffuse mucosal thickening of her small bowel, unclear if this is infectious or noninfectious cause of enteritis. Patient did note that she did use alcohol prior to this admission, possible alcohol-induced enteritis, or gastroenteritis from dinner just prior. As above we did some stool culture and she did not meet criteria for Clostridium difficile testing and GI was consulted and she will follow with [facility] group for followup. She tolerated the clear liquid diet, was able to be advanced to an unrestricted diet by day of discharge. 4. Unintentional weight loss. This is a subacute issue. The patient reports she has lost 50 pounds unintentionally since October 2017 secondary to a functional GI disorder and she has received EGD, colonoscopy, gastric emptying study, and reports workups with prior GI group. She elects to continue this workup as an outpatient and has no obvious oncological source. 5. Anxiety and PTSD. I continued her home medications of p.r.n. Ativan for mild anxiety. She does attend counseling for PTSD. 6. DVT prophylaxis. She is moderate risk and she was maintained on subcutaneous heparin on this hospitalization. PHYSICAL EXAM: On the day of discharge, patient's vital signs are stable at 145 /73, 97.3, 63, 16, satting 99% on room air. Patient had physical exam, which is notable for pleasant, well-appearing young woman walking around, in no acute distress. Regular rate and rhythm. No murmurs, rubs, or gallops. Clear to auscultation bilaterally. Belly is soft and nontender, nondistended. It has normoactive bowel sounds in all 4 quadrants. Musculoskeletal Exam: She has full range of motion in all 4 limbs. Neurologic: Cranial nerves II through XII are intact and she has no focal neurologic deficits. Skin Exam: She has no rashes or ulcers or abnormalities. Extremity Exam: She has no evidence of edema. LABS ON DAY OF DISCHARGE: Patient had a CBC done that showed a white blood cell count of 9.9, hemoglobin 12.2, hematocrit 36, platelets 231. A BMP was drawn that showed sodium of 135, potassium of 3.8, chloride 108, carbon dioxide 18, BUN 8, creatinine 12, glucose 118. Culture data obtained in this hospitalization include stool culture, which was negative for pathology as well as shiga toxin that was negative. Blood cultures showed no growth to date on hospital day 3. Urine culture, which was no growth to date on hospital day 3 and influenza, which was negative for testing. Imaging done in this hospitalization includes chest x-ray, which showed no acute cardiopulmonary disease. Abdomen and pelvis CT showed a diffuse pattern of mucosal thickening and enhancement in the small bowel, caused a small amount of pelvic ascites and fatty infiltration of the liver. There is no lymphadenopathy and there were no other concerning findings. EKG was done, which showed sinus bradycardia with no evidence of ischemia. CONSULTANTS IN THIS HOSPITALIZATION: Include: Dr. Erik Dupont from GI. She will arrange for GI followup with the [facility]. THINGS TO FOLLOWUP ON AFTER DISCHARGE: 1. Enteritis. Patient presumed to have infectious source secondary to presentation with sepsis and she will continue antibiotic coverage for a total of 7 days for an intraabdominal source. 2. Functional GI disorder in the setting of subacute weight loss. Patient has been reluctant to follow up with GI group in [place] since she relocated, secondary to bad experiences with prior GI providers in the past. Patient is encouraged to follow up with GI [facility] group and she agrees. She has a good relationship with primary care provider and encouraged her to continue to discuss management and treatment of this functional GI disease in the setting of her mood disorder. Patient does display a significant amount of awareness on this disorder and is motivated to engage in treatment after meeting with Dr. Dupont. She will resume counseling. If there are any questions or concerns about the care of this patient in this hospitalization, please do not hesitate to reach out to us. Patient will arrange for followup with her primary care provider, who is Dr. Yamileth Cheng within 1 to 2 weeks. She has no questions and is discharged to home on . TIME SPENT: Thirty minutes was spent in the discharge of this patient with over half of that spent at the bedside and involved and direct patient care. Patient and her family felt comfortable with patient to return to home and she is ambulating, tolerating p.o. and back to her baseline on day of discharge. [id number]/[facility] #: [id number] MAYE
[2018-04-28] MEDS: metroNIDAZOLE IV 500 MG/100ML* 500 MG/100 ML BAG IVPB SCH (09:58)
== END 2018-04-28 14:36 | disposition home or self-care (01) | DRG 872 ==
LOC: ED 11:44 → MEDTELE 18:17
PROVIDERS: ADMIT Internal Medicine; ATTEND Internal Medicine
DX: A41.9 Sepsis, unspecified organism (principal); N39.0 Urinary tract infection, site not specified; N17.9 Acute kidney failure, unspecified; E87.2 Acidosis; E44.0 Moderate protein-calorie malnutrition; R18.8 Other ascites; A09 Infectious gastroenteritis and colitis, unspecified; F43.10 Post-traumatic stress disorder, unspecified; G89.29 Other chronic pain; I10 Essential (primary) hypertension; F41.9 Anxiety disorder, unspecified; K64.9 Unspecified hemorrhoids; K31.84 Gastroparesis; R07.9 Chest pain, unspecified; F32.9 Major depressive disorder, single episode, unspecified; R10.9 Unspecified abdominal pain; K92.9 Disease of digestive system, unspecified; D25.9 Leiomyoma of uterus, unspecified; R00.1 Bradycardia, unspecified; F39 Unspecified mood [affective] disorder; Z72.89 Other problems related to lifestyle; Z98.51 Tubal ligation status; Z82.49 Family history of ischemic heart disease and other diseases of the circulatory system; Z68.22 Body mass index [BMI] 22.0-22.9, adult
CPT/HCPCS: 36415; 71045; 74177; 80048; 80053; 80307; 80320; 80329; 81003; 81015; 82550; 83605; 83735; 83880; 84484; 84702; 85025; 85610; 85730; 86140; 87040; 87045; 87046; 87077; 87086; 87899; 93005; 99285; A9270-GY; G0480; J0696; J1644; J2765; J3490; Q9967

== ENCOUNTER 2019-02-26 17:44 | Emergency (ER) | payer SELFPAY ==
[2019-02-26] MEDS ORDERED: NS 0.9% 1000 ML** 1,000 ML IV ONE (17:57)
[2019-02-26] MEDS ORDERED: Ondansetron INJ* 2 MG/ML VIAL IV ONE (17:57)
[2019-02-26] MEDS ORDERED: Morphine 4 MG/ML VIAL (1 ml) 4 MG/ML VIAL IV ONE ×2 (17:57→20:27)
--- NOTE | 2019-02-26 18:06 | ED ---
Abdominal Pain/Female - HPI Summary HPI Summary: 48-year-old female with a significant past medical history of multiple uterine fibroids, hypertension presents to the emergency department today complaining of right lower quadrant abdominal pain since this afternoon. Patient states it was a sudden onset 8 out of 10 stabbing pain in her right lower quadrant. Patient denies fever however she does endorse multiple episodes of vomiting. Patient denies fever, blood per rectum, dark colored stools, pain with urination, vaginal discharge, rash, lightheadedness. Patient is unsure of when her last menstrual cycle was due to her regular spotting from her uterine fibroids. Patient denies recreational drug use or alcohol use. Patient denies abdominal surgeries in the past. Family history and social history are noncontributory. No modifying factors. - History of Current Complaint Chief Complaint: EDAbdPain Stated Complaint: ABD PAIN PER PT Time Seen by Provider: 02/26/19 17:50 Hx Obtained From: Patient Onset/Duration: Sudden Onset, Lasting Hours Timing: Constant Severity Initially: Severe Severity Currently: Severe Pain Intensity: 8 Pain Scale Used: 0-10 Numeric Location: Discrete At: RLQ Radiates: No Character: Sharp Aggravating Factor(s): Movement Alleviating Factor(s): Nothing Associated Signs and Symptoms: Positive: Vomiting. Negative: Fever, Cough, Chest Pain, Back Pain, Constipation, Blood in Stool, Urinary Symptoms, Decreased Appetite, Vaginal Bleeding, Vaginal Discharge, Nausea, Diarrhea Allergies/Adverse Reactions: Allergies Allergy/AdvReac Type Severity Reaction Status Date / Time No Known Allergies Allergy Verified 02/26/19 17:47 Home Medications: Home Medications Desogestrel-Ethinyl Estradiol [Enskyce 28 Tablet] 1 tab PO DAILY 02/26/19 [ History Confirmed 02/26/19] PMH/Surg Hx/FS Hx/Imm Hx Endocrine/Hematology History: Denies: Hx Diabetes Cardiovascular History: Reports: Hx Hypertension Denies: Hx Congestive Heart Failure, Hx Pacemaker/ICD GI History: Reports: Other GI Disorders - NO PMHx of ulcerative colitis Denies: Hx Crohn's Disease History: Denies: Hx Renal Disease Sensory History: Reports: Hx Contacts or Glasses Denies: Hx Hearing Aid Opthamlomology History: Reports: Hx Contacts or Glasses Psychiatric History: Denies: Hx Panic Disorder - Surgical History Surgery Procedure, Year, and Place: TUBAL LIGATION. DISCECTOMY L4-S1 ( W/ METAL CAGE)-[facility] Infectious Disease History: No Infectious Disease History: Denies: Traveled Outside the [place] in Last 30 Days - Family History Known Family History: Positive: Hypertension - Social History Alcohol Use: Rare Substance Use Type: Reports: None Smoking Status (MU): Never Smoked Tobacco Review of Systems Constitutional: Negative Eyes: Negative ENT: Negative Cardiovascular: Negative Respiratory: Negative Positive: Abdominal Pain, Vomiting. Negative: Diarrhea, Nausea Genitourinary: Negative Musculoskeletal: Negative Skin: Negative Neurological: Negative Psychological: Normal All Other Systems Reviewed And Are Negative: Yes Physical Exam - Summary Physical Exam Summary: Inspection of the abdomen reveals no masses or ecchymosis. Auscultation reveals normoactive bowel sounds throughout. There is tenderness to palpation the right lower quadrant. Positive Rovsing, psoas, McBurney's sign. Negative obturator, Puga's sign. No CVA tenderness bilaterally. Triage Information Reviewed: Yes Vital Signs On Initial Exam: Initial Vitals Temp Pulse Resp BP Pulse Ox 97 F 98 16 187/110 98 02/26/19 17:46 02/26/19 17:46 02/26/19 17:46 02/26/19 17:46 02/26/19 17:46 Vital Signs Reviewed: Yes Appearance: Positive: Well-Appearing, Well-Nourished, Pain Distress Skin: Positive: Warm, Skin Color Reflects Adequate Perfusion Eyes: Positive: EOMI, KYUNG ENT: Positive: Hearing grossly normal Respiratory/Lung Sounds: Positive: Clear to Auscultation, Breath Sounds Present Cardiovascular: Positive: RRR, S1, S2 Abdomen Description: Positive: Soft. Negative: CVA Tenderness (R), CVA Tenderness (L), Distended, Guarding, Peritoneal Signs Bowel Sounds: Positive: Present Musculoskeletal: Positive: Strength/ROM Intact Neurological: Positive: Sensory/Motor Intact, Alert, Oriented to Person Place, Time, Normal Gait, Speech Normal Psychiatric: Positive: Anxious AVPU Assessment: Alert Procedures - Sedation Patient Received Moderate/Deep Sedation with Procedure: No Diagnostics - Vital Signs Vital Signs Temp Pulse Resp BP Pulse Ox 02/26/19 17:46 97 F 98 16 187/110 98 - Laboratory Result Diagrams: 02/26/19 18:05 02/26/19 18:05 Lab Statement: Any lab studies that have been ordered have been reviewed, and results considered in the medical decision making process. Abdominal Pain Fem Course/Dx - Course Course Of Treatment: Patient was evaluated in the emergency department for abdominal pain. The patient seen and examined her vitals were stable and she is afebrile. Patient was given 4 mg morphine and 4 mg of Zofran for pain. Patient was given 1 L of normal saline. Laboratory studies were ordered as well as CT scan of the abdomen and pelvis with oral and IV contrast. Labs show WBC 13.2 with left shift. CRP slightly elevated at 8.02.Mild hypokalemia, 3.2 and hypomagnesemia 1.7. Negative test. All other labs WNL. CT scan of the abdomen and pelvis with oral and IV contrast shows a normal appendix. There is a 2 mm calculus in the proximal right ureter with moderate right obstructive uropathy. Stone will likely pass on its own. Patient was given IM Toradol and tamsulosin in the emergency department. She was given a prescription for Zofran and told to take ibuprofen 600 mg every 6 hours as needed for pain and to follow-up with urology. - Diagnoses Differential Diagnosis: Positive: Appendicitis, Bowel Obstruction, Constipation , Diverticulitis, Ectopic , Gall Bladder Disease, Ovarian Cyst, Pelvic Inflammatory Disease, Peptic Ulcer Disease, Renal Colic, Urinary Tract Infection Provider Diagnoses: Abdominal pain Discharge ED - Sign-Out/Discharge Documenting (check all that apply): Patient Departure - Discharge Plan Condition: Stable Disposition: HOME Patient Education Materials: Kidney Stones (ED), Acute Abdominal Pain (ED) Referrals: Yamileth Cheng MD [Primary Care Provider] - Ahmet Irby MD [Medical Doctor] - 5 Days Additional Instructions: You were seen in the emergency department today and diagnosed with a kidney stone that is approximately 2 mm in size in your right ureter. The stone will most likely pass on its own to facilitate this please take ibuprofen, Zofran, tamsulosin. You may take Zofran as needed for nausea. Take 600 mg of ibuprofen every 6 hours as needed for pain. Please increase your fluid intake to help facilitate stone movement. Please follow up with urology within 5-7 days. Please return to emergency department immediately if he develops any new or worsening symptoms. - Billing Disposition and Condition Condition: STABLE Disposition: Home
[2019-02-26 18:12] LABS: ABS Basophils 0.1 10^3/ul (0-0.2); ABS Eosinophils 0.3 10^3/ul (0-0.6); ABS Lymphocytes 1.8 10^3/ul (1.0-4.8); ABS Neutrophils 10.1 10^3/ul (1.5-7.7); Hematocrit 42 % (35-47); Hemoglobin 14.1 g/dL (12.0-16.0); Lymphocyte % 13.7 %; Mean Corpuscular HGB Conc 34 g/dL (31-36); Mean Corpuscular Hemoglobin 30 pg (27-31); Mean Corpuscular Volume 89 fL (80-97); Mean Platelet Volume 8.2 fL (7.4-10.4); Platelet Count 311 10^3/uL (150-450); Red Cell Distribution Width 13 % (10-15); White Blood Count 13.2 10^3/uL (3.5-10.8)
[2019-02-26 18:31] LABS: ALT 22 U/L (7-52); AST 20 U/L (13-39); Albumin 4.2 g/dL (3.2-5.2); Albumin/Globulin Ratio 1.4 (1-3); Alkaline Phosphatase 49 U/L (34-104); Anion Gap 12 mmol/L (2-11); BUN/Creatinine Ratio 9.9 (8-20); Blood Urea Nitrogen 7 mg/dL (6-24); C Reactive Protein 8.02 mg/L (<8.01); CO2 Carbon Dioxide 25 mmol/L (22-32); Calcium 9.1 mg/dL (8.6-10.3); Chloride 100 mmol/L (101-111); EGFR African American 107.2 (>60); EGFR Non-African American 88.6 (>60); Glucose 109 mg/dL (70-100); Magnesium 1.7 mg/dL (1.9-2.7); Potassium 3.2 mmol/L (3.5-5.0); Sodium 137 mmol/L (135-145); Total Protein 7.2 g/dL (6.4-8.9)
[2019-02-26 18:36] LABS: HCG Pregnancy < 0.60 mIU/mL
[2019-02-26] MEDS ORDERED: Iohexol 300* (CONTRAST) 10 ML SDV IV ONE (19:36)
[2019-02-26 20:33] LABS: Urine Appearance Clear; Urine Bilirubin Negative (Negative); Urine Blood 2+ (Negative); Urine Color Yellow; Urine Glucose Negative (Negative); Urine Ketones 1+ (Negative); Urine Nitrite Negative (Negative); Urine Protein Negative (Negative); Urine Specific Gravity 1.014 (1.010-1.030); Urine Urobilinogen Negative (Negative)
[2019-02-26 20:40] LABS: Urine Bacteria Absent (Absent); Urine Red Blood Cell 2+(6-10/hpf) (Absent); Urine Squamous Epithelial Cell Present (Absent); Urine White Blood Cell Trace(0-5/hpf) (Absent)
[2019-02-26] MEDS ORDERED: Ketorolac *IM* INJ* 60 MG/2 ML VIAL IM ONE (20:56)
[2019-02-26] MEDS ORDERED: Tamsulosin CAP* 0.4 MG PO ONE (20:57)
[2019-02-26] MEDS ORDERED: Ketorolac INJ* 30 MG/ML 1 ML VIAL IV PUSH ONE (21:04)
[2019-02-26 21:47] VITALS: BP 149/105
== END 2019-02-26 21:45 | disposition home or self-care (01) ==
LOC: ED 17:44
DX: R10.9 Unspecified abdominal pain (principal); R11.10 Vomiting, unspecified; I10 Essential (primary) hypertension; Z79.899 Other long term (current) drug therapy
CPT/HCPCS: 36415; 74177; 80053; 81003; 81015; 83605; 83690; 83735; 84702; 85025; 86140; 87086; 96361; 96374; 96375; 99283; J1885; J2270; J2405; Q9967